=== PATIENT | female | born 1980 | race Caucasian/White ===

== ENCOUNTER 2016-07-01 13:34 | Observation (INO) | payer MEDICAID, MEDICARE, OTHER ==
[2016-07-01] VITALS (8 sets, daily range): BP systolic 134–158; BP diastolic 60–93; PULSE 55–82; RESP 16–20; TEMP 98.2–98.6; O2SAT 97–100
[~2016-07-01] VITALS: Ht 157.5 cm; Wt 77.0 kg
[2016-07-01] MEDS ORDERED: LABE200T2 PO (14:28)
[2016-07-01] MEDS ORDERED: METF500T PO (14:28)
[2016-07-01] MEDS ORDERED: NITROGLYCERIN 2% OINT 1 GM PACKET TOP ONE (14:45)
[2016-07-01] MEDS ORDERED: METOPROLOL TARTRATE 25 MG TAB PO ONE (14:45)
[2016-07-01] MEDS ORDERED: SODIUM CHLORIDE 0.9% FLUSH 10 ML FLUSH IVF PRN (14:45)
[2016-07-01] MEDS ORDERED: ASPIRIN 325 MG TAB PO ONE (14:45)
--- NOTE | 2016-07-01 14:50 | PD ---
HPI Chief Complaint: Chest Pain Time Seen by Provider: 14:37 Travel History International Travel<30 days: No Contact w/Intl Traveler<30days: No Traveled to known affect area: No History of Present Illness HPI 35-year-old female with history of heart surgery as a baby due to a vascular malformation, hypertension, presents to the ER today because she states that she ran out of her blood pressure medications yesterday and started having chest pains which she currently rates at a 7 out of 10 starting at 8 AM this morning. She reports mild nausea, mild shortness of breath, and states that the chest discomfort worsens with movement and deep breaths. She denies any coughing, fevers, abdominal pains, vomiting, or any other symptoms. Modifying Factors: None Associated Signs & Symptoms: Chest pains Risk Factors: Hypertension PFSH Past Medical History Anxiety: Yes Cardiovascular Problems: Yes Diabetes: Yes (METFORMIN) Patient Takes Glucophage: Yes Diminished Hearing: No Hypertension: Yes Psychiatric: Yes Tetanus Vaccination: < 5 Years Influenza Vaccination: Yes ?: Not LMP: 07/01/16 : 2 Para: 2 Tubal Ligation: Yes Past Surgical History Cardiac Surgery: Yes (open heart sx vascular ring around heart) Section: Yes (x2) Eye Surgery: Yes (tear duct) Other Surgery: Yes (carpal tunnel sx) Social History Alcohol Use: No Tobacco Use: Yes (1 ppd) Substance Use: No Allergies-Medications (Allergen,Severity, Reaction): Coded Allergies: No Known Allergies (Unverified , 07/01/16) Reported Meds & Prescriptions Reported Meds & Active Scripts Active Reported Labetalol (Labetalol HCl) 200 Mg Tab 200 Mg PO TID Metformin (Metformin HCl) 500 Mg Tab 500 Mg PO BIDPC With meals Review of Systems Except as stated in HPI: all other systems reviewed are Neg Physical Exam Narrative GENERAL: Well-developed young white female patient currently not in acute distress. Awake and oriented 3. SKIN: Focused skin assessment warm/dry. HEAD: Atraumatic. Normocephalic. EYES: Pupils equal and round. No scleral icterus. No injection or drainage. ENT: No nasal bleeding or discharge. Mucous membranes pink and moist. NECK: Trachea midline. No JVD. CARDIOVASCULAR: Regular rate and rhythm. No murmur appreciated. RESPIRATORY: No accessory muscle use. Clear to auscultation. Breath sounds equal bilaterally. GASTROINTESTINAL: Abdomen soft, non-tender, nondistended. Hepatic and splenic margins not palpable. MUSCULOSKELETAL: No obvious deformities. No clubbing. No cyanosis. No edema. NEUROLOGICAL: Awake and alert. No obvious cranial nerve deficits. Motor grossly within normal limits. Normal speech. PSYCHIATRIC: Appropriate mood and affect; insight and judgment normal. Data Data Last Documented VS Vital Signs Date Time Temp Pulse Resp B/P Pulse Ox O2 Delivery O2 Flow Rate FiO2 07/01/16 15:00 67 18 158/93 100 Room Air 07/01/16 13:37 98.6 Orders Electrocardiogram (07/01/16 ) Electrocardiogram (07/01/16 14:37) Ckmb (Isoenzyme) Profile (07/01/16 14:37) Complete Blood Count With Diff (07/01/16 14:37) Comprehensive Metabolic Panel (07/01/16 14:37) Magnesium (Mg) (07/01/16 14:37) Prothrombin Time / Inr (Pt) (07/01/16 14:37) Act Partial Throm Time (Ptt) (07/01/16 14:37) Troponin I (07/01/16 14:37) Lipase (07/01/16 14:37) Chest, Single Ap (07/01/16 14:37) Ecg Monitoring (07/01/16 14:37) Bilateral Bp Monitoring (07/01/16 14:37) Iv Access Insert/Monitor (07/01/16 14:37) Oximetry (07/01/16 14:37) Oxygen Administration (07/01/16 14:37) Aspirin (Aspirin) (07/01/16 14:45) Nitroglycerin 2% Oint (Nitroglycerin 2% (07/01/16 14:45) Sodium Chloride 0.9% Flush (Ns Flush) (07/01/16 14:45) Ed Urine Pregnancytest Poc (07/01/16 14:37) Metoprolol Tartrate (Lopressor) (07/01/16 14:45) D-Dimer (07/01/16 14:50) Morphine Inj (Morphine Inj) (07/01/16 16:00) Labs Laboratory Tests Test 07/01/16 14:50 White Blood Count 10.1 TH/MM3 Red Blood Count 4.37 MIL/MM3 Hemoglobin 12.7 GM/DL Hematocrit 39.9 % Mean Corpuscular Volume 91.3 FL Mean Corpuscular Hemoglobin 29.2 PG Mean Corpuscular Hemoglobin 31.9 % Concent Red Cell Distribution Width 14.9 % Platelet Count 274 TH/MM3 Mean Platelet Volume 9.7 FL Neutrophils (%) (Auto) 70.6 % Lymphocytes (%) (Auto) 20.3 % Monocytes (%) (Auto) 7.0 % Eosinophils (%) (Auto) 1.6 % Basophils (%) (Auto) 0.5 % Neutrophils # (Auto) 7.1 TH/MM3 Lymphocytes # (Auto) 2.1 TH/MM3 Monocytes # (Auto) 0.7 TH/MM3 Eosinophils # (Auto) 0.2 TH/MM3 Basophils # (Auto) 0.1 TH/MM3 CBC Comment DIFF FINAL Differential Comment Prothrombin Time 10.0 SEC Prothromb Time International 0.9 RATIO Ratio Activated Partial 25.0 SEC Thromboplast Time D-Dimer Quantitative (PE/DVT) 0.27 MG/L FEU Sodium Level 144 MEQ/L Potassium Level 4.1 MEQ/L Chloride Level 110 MEQ/L Carbon Dioxide Level 26.8 MEQ/L Anion Gap 7 MEQ/L Blood Urea Nitrogen 10 MG/DL Creatinine 0.55 MG/DL Estimat Glomerular Filtration 126 ML/MIN Rate Random Glucose 86 MG/DL Calcium Level 9.2 MG/DL Magnesium Level 2.7 MG/DL Total Bilirubin 0.2 MG/DL Aspartate Amino Transf 12 U/L (AST/SGOT) Alanine Aminotransferase 23 U/L (ALT/SGPT) Alkaline Phosphatase 34 U/L Total Creatine Kinase 19 U/L Troponin I LESS THAN 0.02 NG/ML Total Protein 6.8 GM/DL Albumin 3.6 GM/DL Lipase 164 U/L [facility] Medical Decision Making Medical Screen Exam Complete: Yes Emergency Medical Condition: Yes Medical Record Reviewed: Yes Interpretation(s) EKG shows NSR, no ST elevation or depression, and no arrhythmias. No significant T-wave inversions. CHEST X-RAY: No infiltrate, pneumothorax or mediastinal widening. Laboratory Tests Test 07/01/16 14:50 Mean Corpuscular Hemoglobin 31.9 % Concent (32.0-36.0) Neutrophils (%) (Auto) 70.6 % (16.0-70.0) Chloride Level 110 MEQ/L (98-107) Magnesium Level 2.7 MG/DL (1.5-2.5) Aspartate Amino Transf 12 U/L (15-37) (AST/SGOT) Alkaline Phosphatase 34 U/L (45-117) Total Creatine Kinase 19 U/L (26-192) Troponin I LESS THAN 0.02 NG/ML (0.02-0.05) Differential Diagnosis Chest painsdysrhythmias versus ACS versus pneumonia versus anxiety attack Narrative Course EKG did not show any signs of acute changes. Patient states she also has a father who had an PR at the age of 25. At this point, cardiac enzymes and the rest of the lab work is unremarkable. Abdomen is fairly benign and I do not suspect an acute intra-abdominal process. My plan would be to admit her for further evaluation a chest pains. Diagnosis Primary Impression: Chest pain Admitting Information Admitting Physician Requests: Sherlyn Abreu MD Jul 01, 2016 14:50
[2016-07-01 15:31] LABS: AUTOMATED NEUTROPHIL # 7.1 TH/MM3 (1.8-7.7); BASOPHIL # 0.1 TH/MM3 (0-0.2); BASOPHIL % 0.5 % (0.0-2.0); EOSINOPHIL # 0.2 TH/MM3 (0-0.4); EOSINOPHIL % 1.6 % (0.0-4.0); HEMATOCRIT 39.9 % (35.0-46.0); HEMO FLAGS DIFF FINAL; LYMPH % 20.3 % (9.0-44.0); LYMPHOCYTE # 2.1 TH/MM3 (1.0-4.8); MEAN CELL VOLUME 91.3 FL (80.0-100.0); MEAN CORPUSCULAR HEMOGLOBIN 29.2 PG (27.0-34.0); MEAN CORPUSCULAR HGB CONC 31.9 % (32.0-36.0); NEUT % 70.6 % (16.0-70.0); PLATELET COUNT 274 TH/MM3 (150-450); RED BLOOD COUNT 4.37 MIL/MM3 (4.00-5.30); RED CELL DISTRIBUTION WIDTH 14.9 % (11.6-17.2); WHITE BLOOD COUNT 10.1 TH/MM3 (4.0-11.0)
[2016-07-01 15:48] LABS: INTERNATIONAL NORMALIZED RATIO 0.9 RATIO
[2016-07-01 15:52] LABS: ALT (GPT) 23 U/L (10-53); ANION GAP 7 MEQ/L (5-15); AST (GOT) 12 U/L (15-37); BICARBONATE 26.8 MEQ/L (21.0-32.0); BLOOD UREA NITROGEN 10 MG/DL (7-18); CHLORIDE 110 MEQ/L (98-107); GLOMERULAR FILTRATION RATE 126 ML/MIN (>89); MAGNESIUM 2.7 MG/DL (1.5-2.5); POTASSIUM 4.1 MEQ/L (3.5-5.1); SODIUM (NA) 144 MEQ/L (136-145)
[2016-07-01 15:56] LABS: ALKALINE PHOSPHATASE 34 U/L (45-117); TOTAL BILIRUBIN ADULT 0.2 MG/DL (0.2-1.0)
[2016-07-01 16:00] LABS: CREATINE KINASE 19 U/L (26-192)
[2016-07-01] MEDS ORDERED: MORPHINE SULFATE 4 MG/ML INJ IV PUSH ONE (16:00)
--- NOTE | 2016-07-01 16:17 | RADRPT ---
EXAM DATE/TIME: 07/01/2016 14:50 [facility] COMPARISON: No previous studies available for comparison. INDICATIONS : Chest pain with hypertension. MEDICAL HISTORY : Hypertension. SURGICAL HISTORY : open heart at ENCOUNTER: Initial ACUITY: 1 day PAIN SCORE: 9/10 LOCATION: Bilateral upper chest FINDINGS: A single view of the chest demonstrates the lungs to be symmetrically aerated without evidence of mas s, infiltrate or effusion. The cardiomediastinal contours are unremarkable. Osseous structures are intact. CONCLUSION: No acute disease. Khoi Pathak MD on July 01, 2016 at 16:15 Board Certified Radiologist. This report was verified electronically.
[2016-07-01] MEDS ORDERED: NITROGLYCERIN 0.4 MG SL 25 TABS/BTL SL PRN (16:45)
[2016-07-01] MEDS ORDERED: ONDANSETRON HCL 4 MG/2 ML VIAL IV PRN (16:45)
[2016-07-01] MEDS ORDERED: ACETAMINOPHEN 500 MG CPLT PO PRN (16:45)
--- NOTE | 2016-07-01 18:01 | HHI.HP ---
[facility] Chief Complaint Chest pain History of Present Illness 35-year-old female with known diabetes and hypertension presents to the emergency room today for further evaluation of chest discomfort. Onset last night 8:30 PM. Nonexertional. Location substernal. Characterized as tight and cramping. Associated symptoms included shortness of breath, nausea, vomiting, and diaphoresis. Hurts to take a deep breath. Duration constant. She was unable to fall asleep until early this a.m. and upon awakening she continued to have chest discomfort therefore was encouraged by her boyfriend to come to the emergency room for further evaluation. She is from out of town visiting from [facility]. No known precipitating or relieving factors. Endorses she ran out of her labetalol 24 hours ago, and she takes 3 times a day. Also, one hour after arrival to emergency room she then developed a sharp knife like pain in her right upper quadrant. Endorses "gallbladder attacks in the past" although does not remember testing for gallbladder stones. Last meal last evening pizza. He did not have an appetite today. One episode of vomiting last evening. Review of Systems General: No fatigue,weakness, fever, chills, or recent illness. Recently traveled from [place] 1 week ago and says to return home 07/03. HEENT: This a.m. had headache with seeing spots. Headache has since subsided. No nasal congestion or drainage, no dysphasia. CV: As stated above. Chest pain has improved currently rated 1/10. No past chest discomfort. No palpitations, intermittent leg pain, dizziness RESP: No SOB, cough, wheeze, or recent URI. GI: No nausea, vomiting, bowel changes, diarrhea, constipation, pain, distention , melena, blood in the stool. No change in appetite. Intentional weight loss of 75 pounds. Since her weight loss her insulin has been stopped and only takes oral anti-glycemic for her diabetes. 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 Endorses situational stress as her kids are not with her on this trip. SKIN: No rashes, no concerning lesions Past Family Social History Allergies: Coded Allergies: No Known Allergies (Unverified , 07/01/16) Past Medical History Diabetes, hypertension Past Surgical History Cardiac surgery as a baby due to vascular malformation Reported Medications Reported Meds & Active Scripts Active Reported Labetalol (Labetalol HCl) 200 Mg Tab 200 Mg PO TID Metformin (Metformin HCl) 500 Mg Tab 500 Mg PO BIDPC With meals Active Ordered Medications Current Medications Medications (Trade) Dose Ordered Sig/Tona Route Start Time Stop Time Status Last Admin (NS Flush) 2 ml UNSCH PRN IVF 07/01/16 14:45 (NS Flush) 2 ml BID IV FLUSH 07/01/16 21:00 (Tylenol) 500 mg Q4H PRN PO 07/01/16 16:45 (Zofran Inj) 4 mg Q6H PRN IV 07/01/16 16:45 (Nitrostat Sl) 0.4 mg Q5M PRN SL 07/01/16 16:45 (Aspirin) 325 mg DAILY PO 07/02/16 09:00 Family History Father had first heart attack at age 25, he had multiple heart attacks after this time as well. in motor vehicle accident Social History Known diabetes and hypertension. No known hyperlipidemia. Current smoker smokes 1 pack daily. Denies any alcohol or illegal drug use. Single, she is visiting from [place]. Has 2 children age 6 and 8. Past cardiac testing No formal cardiac testing Physical Exam Vital Signs Vital Signs Date Time Temp Pulse Resp B/P Pulse Ox O2 Delivery O2 Flow Rate FiO2 07/01/16 16:00 70 16 134/60 99 Nasal Cannula 2 07/01/16 16:00 98 Nasal Cannula 2 07/01/16 15:00 67 18 158/93 100 Room Air 07/01/16 14:41 74 138/84 07/01/16 14:40 100 Room Air 07/01/16 13:37 98.6 82 20 156/92 100 Room Air Physical Exam GENERAL: Alert WN, WD, NAD, pleasant, moderately obese, female HEAD: NC, AT EYES: Sclera clear, conjunctiva without injection, pupils equal and round NECK: Supple, no masses, trachea midline CV: RRR, without murmur, rub, gallop, no JVD, S1-S2 no S3-S4. RESP: Clear lungs throughout bilateral, no crackles, wheeze, rhonchi, symmetrical chest rise, nonlabored, able to speak in full sentences ABD: Soft, tender to light palpation right upper quadrant and epigastric area, unable to perform Hernandes's sign due to severe tenderness, guarding, positive bowel tones EXT: Pulses +24, trace dependent edema MS: Normal tone 4 extremities, nontender, no obvious deformities, full range of motion NEURO: CN II through CN XII grossly intact, motor strength 5/5, gait WNL PSYCH: A+O 3, pleasant affect, appropriate speech, appropriate mood and affect , insight and judgment SKIN: Normal turgor, normal texture, no lesions, no rashes, brisk cap refill, even hair distribution Laboratory Laboratory Tests Test 07/01/16 14:50 White Blood Count 10.1 Red Blood Count 4.37 Hemoglobin 12.7 Hematocrit 39.9 Mean Corpuscular Volume 91.3 Mean Corpuscular Hemoglobin 29.2 Mean Corpuscular Hemoglobin 31.9 Concent Red Cell Distribution Width 14.9 Platelet Count 274 Mean Platelet Volume 9.7 Neutrophils (%) (Auto) 70.6 Lymphocytes (%) (Auto) 20.3 Monocytes (%) (Auto) 7.0 Eosinophils (%) (Auto) 1.6 Basophils (%) (Auto) 0.5 Neutrophils # (Auto) 7.1 Lymphocytes # (Auto) 2.1 Monocytes # (Auto) 0.7 Eosinophils # (Auto) 0.2 Basophils # (Auto) 0.1 CBC Comment DIFF FINAL Differential Comment Prothrombin Time 10.0 Prothromb Time International 0.9 Ratio Activated Partial 25.0 Thromboplast Time D-Dimer Quantitative (PE/DVT) 0.27 Sodium Level 144 Potassium Level 4.1 Chloride Level 110 Carbon Dioxide Level 26.8 Anion Gap 7 Blood Urea Nitrogen 10 Creatinine 0.55 Estimat Glomerular Filtration 126 Rate Random Glucose 86 Calcium Level 9.2 Magnesium Level 2.7 Total Bilirubin 0.2 Aspartate Amino Transf 12 (AST/SGOT) Alanine Aminotransferase 23 (ALT/SGPT) Alkaline Phosphatase 34 Total Creatine Kinase 19 Troponin I LESS THAN 0.02 Total Protein 6.8 Albumin 3.6 Lipase 164 Result Diagram: 07/01/16 1450 07/01/16 1450 Imaging Last Impressions Chest X-Ray 07/01/16 1437 Signed Impressions: Service Date/Time: June 14:50 - CONCLUSION: No acute disease. Khoi Pathak MD Course EKG Normal sinus rhythm, normal axis with no ST or T-segment changes Assessment and Plan Assessment and Plan #1 Chest painadmitted to chest pain center. Will rule her out with 3 sets of EKGs, cardiac enzymes, and monitor overnight. Will be seen and evaluated by Dr. Peewee Martell in a.m. discussed the likelihood she may complete an exercise stress test in the morning due to her risk factors. She is agreeable to plan of care. #2 Diabeteshold metformin, SSI low dose #3 Hypertension-continue labetalol, will provide refill for prescription upon discharge. Educated on importance of not running out of labetalol. #4 Acute cholelithiasisshe is afebrile, without leukocytosis. Due to severe guarding of right upper quadrant and epigastric areas will order ultrasound of gallbladder to rule out. Shantel Montgomery Jul 01, 2016 18:01
--- NOTE | 2016-07-01 18:29 | EKG ---
Date Performed: 07/01/2016 Time Performed: 14:08:14 PTAGE: 35 years EKG: Sinus rhythm WITH SINUS ARRHYTHMIA NORMAL ECG NO PREVIOUS TRACING DOCTOR: Heriberto Miller Interpretating Date/Time 07/01/2016 18:28:03
[2016-07-01] MEDS ORDERED: GLUCAGON 1 MG/ML VIAL OTHER PRN (18:45)
[2016-07-01] MEDS ORDERED: DEXTROSE 50% IN WATER 50 ML VIAL(D50) IV PUSH PRN (18:45)
[2016-07-01] MEDS ORDERED: MORPHINE SULFATE 4 MG/ML INJ IV PUSH PRN (19:15)
[2016-07-01 19:51] LABS: CREATINE KINASE 17 U/L (26-192)
[2016-07-01] MEDS: INSULIN ASPART SUPPLEMENTAL SCALE SQ SCH (20:24)
[2016-07-01] MEDS: SODIUM CHLORIDE 0.9% FLUSH 10 ML FLUSH IV FLUSH SCH (21:27)
[2016-07-01 21:29] LABS: CREATINE KINASE 17 U/L (26-192)
--- NOTE | 2016-07-01 21:54 | RADRPT ---
EXAM DATE/TIME: 07/01/2016 19:38 [facility] COMPARISON: No previous studies available for comparison. INDICATIONS : Right upper quadrant pain. MEDICAL HISTORY : Hypercholesterolemia. Carcinoma, cervical. Preeclampsia. Hypertension. Diabetes. Anxiety. SURGICAL HISTORY : Tubal ligation. CABG. section. Carpal tunnel repair. Heart surgery as infant. ENCOUNTER: Initial ACUITY: 1 day PAIN SCORE: 10/10 LOCATION: Right upper quadrant MEASUREMENTS: LIVER: 17.9 cm length COMMON DUCT: 4 mm RIGHT KIDNEY: 10.6 x 6.1 x 4.7 cm FINDINGS: The gallbladder is intact without any evidence for gallstones, gallbladder wall thickening, or perich olecystic fluid. The visualized liver, head of the pancreas, and right kidney appear grossly intact for technique. CONCLUSION: Unremarkable study. Vinny Rodriguez MD on July 01, 2016 at 21:52 Board Certified Radiologist. This report was verified electronically.
[2016-07-01 22:28] LABS: HEMOGLOBIN A1b 1.4 %; HEMOGLOBIN Ao 86.8 %; HEMOGLOBIN LA1C 1.9 %; HEMOGLOBIN P3 3.4 %
[2016-07-02 00:07] VITALS: BP_SYST 72; PULSE 63; RESP 19; TEMP 98.1; O2SAT 97
[2016-07-02 02:42] VITALS: PULSE 55
[2016-07-02 05:13] VITALS: BP_SYST 119; BP_SYST 158; BP_DIAS 73; BP_DIAS 81; PULSE 52; RESP 19; TEMP 98.1; O2SAT 96
[2016-07-02] MEDS: INSULIN ASPART SUPPLEMENTAL SCALE SQ SCH (05:59)
[2016-07-02 08:07] VITALS: PULSE 44
[2016-07-02 08:34] VITALS: BP 160/94; PULSE 60; RESP 20; TEMP 97.8; O2SAT 99
[2016-07-02] MEDS: SODIUM CHLORIDE 0.9% FLUSH 10 ML FLUSH IV FLUSH SCH (08:38)
--- NOTE | 2016-07-02 08:41 | HHI.DCPOC ---
Discharge Care Plan Diagnosis: (1) Chest pain Goals to Promote Your Health * To prevent worsening of your condition and complications * To maintain your health at the optimal level Directions to Meet Your Goals Take your medications as prescribed Follow your dietary instruction Follow activity as directed Keep your appointments as scheduled Take your immunizations and boosters as scheduled If your symptoms worsen call your PCP, if no PCP go to Urgent Care Center or Emergency Room Smoking is Dangerous to Your Health. Avoid second hand smoke Call the 24-hour hour crisis hotline for domestic abuse at Vladimir Schwartz Jul 02, 2016 08:41
[2016-07-02] MEDS ORDERED: ASPIRIN 325 MG TAB PO SCH (09:00)
[2016-07-02] MEDS ORDERED: LABETALOL HCL 200 MG TAB PO SCH (09:00)
--- NOTE | 2016-07-02 15:07 | EKG ---
Date Performed: 07/01/2016 Time Performed: 21:10:24 PTAGE: 35 years EKG: SINUS BRADYCARDIA BORDERLINE ECG PREVIOUS TRACING : 07/01/2016 18.25 Since previous tracing, no significant change noted DOCTOR: Peewee Martell Interpretating Date/Time 07/02/2016 15:05:35
--- NOTE | 2016-07-02 15:08 | EKG ---
Date Performed: 07/01/2016 Time Performed: 18:25:41 PTAGE: 35 years EKG: Sinus rhythm WITH MARKED SINUS ARRHYTHMIA BORDERLINE ECG PREVIOUS TRACING : 07/01/2016 14.08 Since previous tracing, no significant change noted DOCTOR: Peewee Martell Interpretating Date/Time 07/02/2016 15:06:13
== END 2016-07-02 10:00 | disposition home or self-care (01) ==
LOC: EDSEX → NEPC 13:34 → NEDH 16:17 → NEPFCDU 18:47
PROVIDERS: ADMIT Internal Medicine Interventional Cardiology; ATTEND Internal Medicine Interventional Cardiology
DX: R07.9 Chest pain, unspecified (principal); E11.9 Type 2 diabetes mellitus without complications; I10 Essential (primary) hypertension; K80.20 Calculus of gallbladder without cholecystitis without obstruction; F17.200 Nicotine dependence, unspecified, uncomplicated; Z79.84 Long term (current) use of oral hypoglycemic drugs; Z95.1 Presence of aortocoronary bypass graft; Z85.41 Personal history of malignant neoplasm of cervix uteri; Z82.49 Family history of ischemic heart disease and other diseases of the circulatory system
CPT/HCPCS: 71010; 76705; 80053; 82550; 82948; 83036; 83690; 83735; 84443; 84484; 84703; 85025; 85379; 85610; 85730; 93005; 99285; G0378; J2270